=== PATIENT | female | born 1940 | race Caucasian/White ===

== ENCOUNTER → 2019-12-21 | Outpatient (CLI) | payer MEDICARE ==
[~2019-12-21] MED LIST: ASPI-1012 PO; CHOL200074 PO; DULO60CA44 PO; FOLI1TAB85 PO; LEVO25TA54 PO; METO-408 PO; MONT10TA26 PO; PANT40TA55 PO; PREG300C PO; SIMV40TA59 PO; TRAM50TA4 PO; TRAZ-187 PO
== END | disposition home or self-care (01) ==
LOC: SHCH 10:29
PROVIDERS: ATTEND Internal Medicine Cardiovascular Disease
DX: I10 Essential (primary) hypertension (principal); R06.00 Dyspnea, unspecified
CPT/HCPCS: 93306; 93356

== ENCOUNTER → 2019-12-22 | Outpatient (CLI) | payer MEDICARE ==
[~2019-12-22] MED LIST changes: +REGADENOSON 0.4 MG/5 ML PF SYG IVP SCH
== END | disposition home or self-care (01) ==
LOC: SHCH 07:59
PROVIDERS: ATTEND Internal Medicine Cardiovascular Disease
DX: I10 Essential (primary) hypertension (principal); R06.02 Shortness of breath
CPT/HCPCS: 78452; 93017; 96374; A9500 ×2; J2785

== ENCOUNTER → 2020-01-08 | Outpatient (CLI) | payer MEDICARE ==
[~2020-01-08] MED LIST changes: -REGADENOSON 0.4 MG/5 ML PF SYG IVP SCH
== END | disposition home or self-care (01) ==
LOC: RAH 08:52
PROVIDERS: ATTEND Internal Medicine Critical Care Medicine
DX: K80.20 Calculus of gallbladder without cholecystitis without obstruction (principal)
CPT/HCPCS: 74181

== ENCOUNTER 2020-01-19 05:55 | Day surgery (SDC) | payer MEDICARE ==
[2020-01-17 12:21] LABS: BASOPHILS % (AUTO) 0.7 % (0.0-5.0); EOSINOPHILS % (AUTO) 2.1 % (0.0-8.0); LYMPHOCYTES % (AUTO) 39.4 % (21.0-51.0); MEAN CORPUSCULAR HEMOGLOBIN 31.1 pg (27.0-33.0); MEAN CORPUSCULAR HGB CONC 32.4 g/dL (32.0-36.0); MEAN CORPUSCULAR VOLUME 95.8 fL (79-99); MONOCYTES % (AUTO) 9.1 % (3.0-13.0); NEUTROPHILS % (AUTO) 48.5 % (40.0-77.0); PLATELET COUNT (AUTO) 212 K/uL (130-400); RED BLOOD CELL COUNT(AUTO) 4.28 MIL/uL (4.00-5.50); RED CELL DISTRIBUTION WIDTH 13.7 % (11.0-15.5); WHITE BLOOD COUNT (AUTO) 5.7 K/uL (4.8-10.8)
[2020-01-17 12:26] LABS: CREATININE 1.6 mg/dL (0.5-1.5); POTASSIUM 4.7 mmol/L (3.5-5.1)
[2020-01-17 12:32] LABS: INR 0.97 (0.85-1.15); PARTIAL THROMBOPLASTIN TIME 26.9 SEC (26.3-35.5); PROTHROMBIN TIME 10.5 SEC (9.6-11.6)
[2020-01-17 12:47] LABS: APPEARANCE,URINE Cloudy (CLEAR); BILIRUBIN,URINE Negative (NEGATIVE); COLOR,URINE Yellow (YELLOW); GLUCOSE, URINE (UA) Negative (NEGATIVE); KETONES,URINE Negative (NEGATIVE); LEUKOCYTE ESTERASE ,URINE Large (NEGATIVE); NITRATE,URINE Negative (NEGATIVE); OCCULT BLOOD,URINE Negative (NEGATIVE); PH,URINE 5.5 (5.0-8.0); PROTEIN,URINE Negative (NEGATIVE); UROBILINOGEN,URINE 0.2 mg/dL (0.2-1.0)
[2020-01-17 13:02] LABS: BACTERIA,URINE Moderate /HPF (None Seen); RBC,URINE 0-1 /HPF (0-1); SQUAMOUS EPITHELIAL CELL,UR Rare /HPF (0-2); WBC,URINE 26-50 /HPF (0-1)
--- NOTE | 2020-01-18 11:19 | NUR ---
LABS INFORMED CALVIN KEANE OF ABNORMAL UA/ CULTURE RESULTS PENDING/BUN/CREA. NO ORDERS RECEIVED. PROCEED WITH PLANNED PROCEDURE.
[2020-01-18 15:26] VITALS: BP 111/69
[2020-01-19] VITALS (11 sets, daily range): BP systolic 92–128; BP diastolic 42–56
[~2020-01-19] VITALS: Ht 157.5 cm; Wt 81.5 kg
[~2020-01-19 05:55] MED LIST changes: +ADV250 IH; -ASPI-1012 PO; -CHOL200074 PO; +FAMO40TA7 PO; +HYDR30CR77 RC; +LOSA100T58 PO; -METO-408 PO; -MONT10TA26 PO; -PANT40TA55 PO; +PREG100C55 PO; -PREG300C PO; -SIMV40TA59 PO
[2020-01-19] MEDS ORDERED: SODIUM CHLORIDE 0.9% 1000ML 1,000 ML IV ONE (07:15)
[2020-01-19] MEDS ORDERED: NITROGLYCERIN 2 MG/VIAL VIAL IV ONE (07:28)
[2020-01-19] MEDS ORDERED: IOHEXOL-350 75 ML VIAL IV ONE (07:28)
[2020-01-19] MEDS ORDERED: HEPARIN SODIUM 1000UNIT/ML 10ML VIAL ONE (07:28)
[2020-01-19] MEDS ORDERED: IOHEXOL-350 50ML VIAL IV ONE (07:28)
[2020-01-19] MEDS ORDERED: MEPERIDINE-PF 25 MG/ML SYG ONE (07:29)
[2020-01-19] MEDS ORDERED: SODIUM BICARB 50MEQ 50ML VIAL 50 ML ONE (07:29)
[2020-01-19] MEDS ORDERED: LIDOCAINE HCL 2% 20ML ONE (07:29)
[2020-01-19] MEDS ORDERED: MIDAZOLAM HCL 1 MG/ML 2ML VIAL ONE (07:29)
[2020-01-19] MEDS ORDERED: NICARDIPINE HCL 25 MG/10 ML ML IV ONE (07:48)
[2020-01-19] MEDS ORDERED: ASPIRIN 81MG TAB.CHEW ONE (07:53)
[2020-01-19] MEDS ORDERED: ATORVASTATIN CALCIUM 40 MG TABLET PO SCH (08:00)
[2020-01-19] MEDS ORDERED: PHARMACY COMMUNICATION MISC SCH (08:00)
[2020-01-19 08:50] LABS: CHOLESTEROL 207 mg/dL (<200); HDL CHOLESTEROL 114 mg/dL (35-85); LDL DIRECT 115 mg/dL (0-99); TRIGLYCERIDES 112 mg/dL (30-200)
[2020-01-19] MEDS ORDERED: SODIUM CHLORIDE 0.9% 1000ML 1,000 ML IV SCH (09:00)
--- NOTE | 2020-01-19 13:36 | NUR ---
removed tr band that contained 13ml of air,no complications, site stable no concerns. Gave discharge instructions to patient and family, no concerns voiced
[2020-01-19 14:17] LABS: ALBUMIN 3.2 g/dL (3.5-5.0); BILIRUBIN,DIRECT 0.1 mg/dL (0.0-0.3); BILIRUBIN,TOTAL 0.4 mg/dL (0.2-1.0); TOTAL PROTEIN, SERUM 6.7 g/dL (6.0-8.3)
== END 2020-01-19 13:30 | disposition home or self-care (01) ==
LOC: DAH 05:55
PROVIDERS: ATTEND Internal Medicine Cardiovascular Disease
DX: I20.9 Angina pectoris, unspecified (principal); R94.39 Abnormal result of other cardiovascular function study; R06.00 Dyspnea, unspecified; I49.1 Atrial premature depolarization; I10 Essential (primary) hypertension; J44.9 Chronic obstructive pulmonary disease, unspecified; E66.9 Obesity, unspecified; E78.5 Hyperlipidemia, unspecified; Z68.32 Body mass index [BMI] 32.0-32.9, adult; Z79.01 Long term (current) use of anticoagulants; Z79.899 Other long term (current) drug therapy; Z98.890 Other specified postprocedural states
CPT/HCPCS: 36415 ×2; 71045; 80048; 80061; 80076; 81001; 85025; 85610; 85730; 87077; 87088; 87186; 93005; 93458; A4215; A4216; A4221; A4222; A4223 ×3; A4606; A4663; C1769 ×2; C1894; J1644 ×2; J2175; J2250; J3490 ×4; J7030; Q9965; Q9967; 99156; 99157

== ENCOUNTER 2021-06-09 14:05 | Emergency (ER) | payer MEDICARE ==
[~2021-06-09] VITALS: Ht 157.5 cm; Wt 77.1 kg
[~2021-06-09 14:05] MED LIST changes: -DULO60CA44 PO; +DULO60CA45 PO
[2021-06-09] MEDS ORDERED: ONDANSETRON 4MG INJ IVP ONE (14:30)
[2021-06-09] MEDS ORDERED: KETOROLAC 15MG/ML VIAL (15MG/ML) IM ONE (14:30)
[2021-06-09] MEDS ORDERED: ONDANSETRON 4MG INJ ONE (14:36)
[2021-06-09] MEDS ORDERED: KETOROLAC 30MG VIAL (30MG/ML) ONE (14:36)
[2021-06-09 15:06] LABS: BASOPHILS % (AUTO) 0.6 % (0.0-5.0); EOSINOPHILS % (AUTO) 1.5 % (0.0-8.0); HEMATOCRIT 35.2 % (36-48); LYMPHOCYTES % (AUTO) 30.5 % (21.0-51.0); MEAN CORPUSCULAR HEMOGLOBIN 29.8 pg (27.0-33.0); MEAN CORPUSCULAR HGB CONC 31.5 g/dL (32.0-36.0); MEAN CORPUSCULAR VOLUME 94.4 fL (79-99); MONOCYTES % (AUTO) 8.4 % (3.0-13.0); NEUTROPHILS % (AUTO) 58.7 % (40.0-77.0); PLATELET COUNT (AUTO) 305 K/uL (130-400); RED BLOOD CELL COUNT(AUTO) 3.73 MIL/uL (4.00-5.50); RED CELL DISTRIBUTION WIDTH 14.8 % (11.0-15.5); WHITE BLOOD COUNT (AUTO) 8.6 K/uL (4.8-10.8)
[2021-06-09 15:19] LABS: BILIRUBIN,TOTAL 1.1 mg/dL (0.2-1.0); CREATININE 1.2 mg/dL (0.5-1.5); POTASSIUM 3.9 mmol/L (3.5-5.1); TOTAL PROTEIN, SERUM 7.6 g/dL (6.0-8.3)
[2021-06-09 15:45] LABS: APPEARANCE,URINE Clear (CLEAR); BILIRUBIN,URINE Negative (NEGATIVE); COLOR,URINE Dark Yellow (YELLOW); GLUCOSE, URINE (UA) Negative (NEGATIVE); KETONES,URINE Negative (NEGATIVE); LEUKOCYTE ESTERASE ,URINE Trace (NEGATIVE); NITRATE,URINE Negative (NEGATIVE); OCCULT BLOOD,URINE Negative (NEGATIVE); PH,URINE 6.5 (5.0-8.0); PROTEIN,URINE Negative (NEGATIVE); UROBILINOGEN,URINE 0.2 mg/dL (0.2-1.0)
[2021-06-09 16:02] LABS: RBC,URINE 0-1 /HPF (0-1)
[2021-06-09 16:03] LABS: BACTERIA,URINE Rare /HPF (None Seen); SQUAMOUS EPITHELIAL CELL,UR Rare /HPF (0-2)
[2021-06-09] MEDS ORDERED: METR375C2 PO (16:28)
[2021-06-09] MEDS ORDERED: LEVO500T90 PO (16:28)
[2021-06-09] MEDS ORDERED: DICY20TA2 PO (16:28)
[2021-06-09] MEDS ORDERED: LACT1CAP65 PO (16:28)
[2021-06-09] MEDS ORDERED: METRONIDAZOLE 500 MG TABLET PO SCH (16:30)
[2021-06-09] MEDS ORDERED: LEVOFLOXACIN 500 MG TABLET PO SCH (16:30)
[2021-06-09 16:48] VITALS: BP 108/51
== END 2021-06-09 16:51 | disposition home or self-care (01) ==
LOC: EDH 14:05
DX: K57.32 Diverticulitis of large intestine without perforation or abscess without bleeding (principal); E78.00 Pure hypercholesterolemia, unspecified; F41.9 Anxiety disorder, unspecified; G47.30 Sleep apnea, unspecified; M79.7 Fibromyalgia; Z79.51 Long term (current) use of inhaled steroids; Z79.899 Other long term (current) drug therapy
CPT/HCPCS: 36415; 71045; 74176; 80053; 81001; 83690; 84484; 85025; 93005; 96372; 96374; 99285; J1885; J2405

== ENCOUNTER → 2022-11-16 | Outpatient (CLI) | payer MEDICARE ==
[~2022-11-16] MED LIST changes: +DICY20TA2 PO; +IOHEXOL 350 MG/ML 100ML INFUS..BTL IV ONE; +LACT1CAP65 PO; +LEVO-70 PO; -LOSA100T58 PO; +LOSA100T59 PO; +METR375C2 PO
== END | disposition home or self-care (01) ==
LOC: RAH 07:30
PROVIDERS: ATTEND Internal Medicine Cardiovascular Disease
DX: I25.10 Atherosclerotic heart disease of native coronary artery without angina pectoris (principal)
CPT/HCPCS: 75574; Q9967